=== PATIENT | female | born 2000 | race Hispanic/Latino ===

== ENCOUNTER 2020-01-21 18:06 | Emergency (ER) | payer SELFPAY ==
[2020-01-21 19:25] LABS: Urine Blood 2+ (NEG); Urine Glucose NEGATIVE (NEG); Urine Protein NEGATIVE (NEG); Urine Specific Gravity >1.030 (1.005-1.030)
[2020-01-21 19:36] LABS: Basophils % 0.7 % (0-1.3); Hematocrit 33.7 % (36.0-45.0); Lymphocytes % 23.9 % (15.3-44.8); MPV 7.5 fL (7.6-11.3); RBC Red Blood Cell Count 4.45 M/uL (3.86-4.86)
[2020-01-21 19:43] LABS: BUN Blood Urea Nitrogen 9 mg/dL (7-18); Bicarbonate 27 mmol/L (21-32); Glucose Level 87 mg/dL (74-106); Potassium 3.8 mmol/L (3.5-5.1); Sodium Level 140 mmol/L (136-145)
--- NOTE | 2020-01-21 22:18 | ER ---
Nurse's Notes [facility] Name: Bonita Falk Age: 19 yrs Sex: Female : 2000 Arrival Date: 01/21/2020 Time: 18:09 Bed 8 Private MD: Diagnosis: Abnormal uterine and vaginal bleeding, unspecified Presentation: 01/20 18:18 Chief complaint: Patient states: i have like a mucous plug type drainage around 1pm tw2 today, i called the ethylene oxide panelboard operator in [facility] and she told me to come request an us, and i am having pain, my periods are irregular i get them like 2 times a month, my lower back hurts, and i am having cramping, i am nauseous, i have taking tests and they have been negative but i have all the symptoms of being but i just really dont know. Coronavirus screen: Patient denies a cough. Patient denies shortness of breath or difficulty breathing. Patient denies measured and/or subjective temperature greater than 100.4F prior to today's visit. Patient denies travel on a cruise ship or to a country the [facility] currently lists as an affected area. Patient denies contact with known and/or suspected case of COVID-19. Ebola Screen: Patient denies travel to an Ebola-affected area in the 21 days before illness onset. Initial Sepsis Screen: Does the patient meet any 2 criteria? No. Patient's initial sepsis screen is negative. Does the patient have a suspected source of infection? No. Patient's initial sepsis screen is negative. Risk Assessment: Do you want to hurt yourself or someone else? Patient reports no desire to harm self or others. Onset of symptoms was January 21, 2020. 18:18 Method Of Arrival: Ambulatory tw2 18:18 Acuity: MARIBETH 3 tw2 Triage Assessment: 18:23 General: Appears uncomfortable, Behavior is calm, cooperative, appropriate for age. tw2 Pain: Complains of pain in back and abdomen. GI: Reports lower abdominal pain, nausea. : Reports vaginal bleeding that is bright red, moderate flow. Musculoskeletal: Range of motion: intact in all extremities. 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 - Social history:: Smoking status: Patient reports the use of cigarette tobacco products, "couple of cigarettes a day and i vape", Reported history of juuling and/or vaping. - Family history:: not pertinent. - Hospitalizations: : No recent hospitalization is reported. Screenin:25 Abuse screen: Denies threats or abuse. Denies injuries from another. Nutritional rv screening: No deficits noted. Tuberculosis screening: No symptoms or risk factors identified. Fall Risk None identified. Assessment: 19:25 General: Appears comfortable, Behavior is calm, cooperative. Pain: Complains of pain in rv suprapubic area. Neuro: Level of Consciousness is awake, alert, obeys commands, Oriented to person, place, time, situation. Cardiovascular: Patient's skin is warm and dry. Respiratory: Airway is patent. GI: Abdomen is round non-distended, Reports lower abdominal pain, cramping. Derm: Skin is intact. 21:06 Reassessment: Patient and/or family updated on plan of care and expected duration. Pain rv level reassessed. Patient is alert, oriented x 3, equal unlabored respirations, skin warm/dry/pink. pain is getting better, 6/10 pain scale. updated on the waiting time for ultrasound. Vital Signs: 18:18 BP 131 / 96; Pulse 93; Resp 17; Temp 97.9(TE); Pulse Ox 99% on R/A; Weight 93.89 kg tw2 (R); Height 5 ft. 3 in. (160.02 cm); Pain 7/10; 19:37 BP 142 / 85; Pulse 81; Resp 16; Pulse Ox 100% on R/A; rv 22:26 BP 138 / 86; Pulse 79; Resp 17; Temp 98; Pulse Ox 100% on R/A; rv 18:18 Body Mass Index 36.67 (93.89 kg, 160.02 cm) tw2 ED Course: 18:09 Patient arrived in ED. mr 18:22 Triage completed. tw2 18:23 Arm band placed on. tw2 19:01 Hank James MD is Attending Physician. rn 19:09 Jose, Jose, RN is Primary Nurse. rv 19:20 Inserted saline lock: 20 gauge in right antecubital area, using aseptic technique. rv Blood collected. 19:20 Initial lab(s) drawn, by me, sent to lab. rv 19:26 Patient has correct armband on for positive identification. Pulse ox on. NIBP on. rv 21:44 US Pelvis Complete In Process Unspecified. EDMS 22:26 No provider procedures requiring assistance completed. IV discontinued, intact, rv bleeding controlled, No redness/swelling at site. Pressure dressing applied. Administered Medications: No medications were administered Outcome: 22:18 Discharge ordered by . rn 22:26 Discharged to home ambulatory. rv 22:26 Condition: good 22:26 Discharge instructions given to patient, Instructed on discharge instructions, follow up and referral plans. Demonstrated understanding of instructions, follow-up care. 22:27 Patient left the ED. rv Signatures: Dispatcher [employer] EDRI Korin Knight, MD MD lynn Mckinney Tara, RN RN tw2 Jose Garcia, RN RN rv
--- NOTE | 2020-01-21 22:18 | EDPHYS ---
Physician Documentation [facility] Name: Bonita Falk Age: 19 yrs Sex: Female : 2000 Arrival Date: 01/21/2020 Time: 18:09 Bed 8 Private MD: ED Physician Hank James HPI: 01/20 19:26 This 19 yrs old Female presents to ER via Ambulatory with complaints of Back rn Pain, possible . 19:26 The patient presents with pain that is acute. The symptoms are located in the low back. rn Onset: The symptoms/episode began/occurred 1 month(s) ago. The pain does not radiate. The problem was sustained from unknown cause. Modifying factors: The patient symptoms are alleviated by nothing, the patient symptoms are aggravated by any movement. Severity of symptoms: At their worst the symptoms were mild, in the emergency department the symptoms are unchanged. The patient has not experienced similar symptoms in the past. Reports lower back pain, and intermittent vaginal bleeding, has taken multiple tests that have been negative but states her sisters only ever positive in blood tests. No concern for STI. . [employer]: 19:26 LMP N/A - Irregular menses rv Historical: - Allergies: 18:25 "unknown antibiotic"; tw2 - Home Meds: 18:25 None [Active]; tw2 - PMHx: 18:25 angioedema (2018), "hereditary"; tw2 - PSHx: 18:25 None; tw2 - Immunization history:: Adult Immunizations. - Social history:: Smoking status: Patient reports the use of cigarette tobacco products, "couple of cigarettes a day and i vape", Reported history of juuling and/or vaping. - Family history:: not pertinent. - Hospitalizations: : No recent hospitalization is reported. ROS: 19:26 Constitutional: Negative for fever, chills, and weight loss, Cardiovascular: Negative rn for chest pain, palpitations, and edema, Respiratory: Negative for shortness of breath, cough, wheezing, and pleuritic chest pain, Abdomen/GI: Negative for abdominal pain, nausea, vomiting, diarrhea, and constipation, Back: Negative for injury : Negative for injury, and swelling, MS/Extremity: Negative for injury and deformity, Skin: Negative for injury, rash, and discoloration, Neuro: Negative for headache, weakness, numbness, tingling, and seizure. Exam: 19:26 Constitutional: This is a well developed, well nourished patient who is awake, alert, rn and in no acute distress. Ambulatory to room without difficulty. Head/Face: Normocephalic, atraumatic. Cardiovascular: Regular rate and rhythm. No pulse deficits. Respiratory: No increased work of breathing, no retractions or nasal flaring. Abdomen/GI: soft, non-tender, no masses Back: No spinal tenderness. No costovertebral tenderness. Full range of motion. MS/ Extremity: Pulses equal, no cyanosis. Neuro: Awake and alert, GCS 15, oriented to person, place, time, and situation. Motor strength 5/5 in all extremities. Sensory grossly intact. Normal gait. Vital Signs: 18:18 BP 131 / 96; Pulse 93; Resp 17; Temp 97.9(TE); Pulse Ox 99% on R/A; Weight 93.89 kg tw2 (R); Height 5 ft. 3 in. (160.02 cm); Pain 7/10; 19:37 BP 142 / 85; Pulse 81; Resp 16; Pulse Ox 100% on R/A; rv 22:26 BP 138 / 86; Pulse 79; Resp 17; Temp 98; Pulse Ox 100% on R/A; rv 18:18 Body Mass Index 36.67 (93.89 kg, 160.02 cm) tw2 MDM: 19:01 Patient medically screened. rn 20:13 ED course: Labs unremarkable, reassured patient with neg UPT and serum preg test. Will rn obtain u/s to rule out pelvic pathology, already has outpt LEAD DENTAL ASSISTANT appt setup in < 2 weeks. Pt states not concerned of STI and only sexually active with one partner. . 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 Has been 1.5 hours rn waiting on u/s. . 21:48 ED course: Recommend outpt LEAD DENTAL ASSISTANT w/u including bloodwork, and PAP. . rn 22:17 Differential diagnosis: menorrhagia, ovarian torsion, ovarian cyst, fibroid, septate rn uterus, . Data reviewed: vital signs, nurses notes, lab test result(s), radiologic studies, ultrasound, and as a result, I will discharge patient. Counseling: I had a detailed discussion with the patient and/or guardian regarding: the historical points, exam findings, and any diagnostic results supporting the discharge/admit diagnosis, lab results, radiology results, the need for outpatient follow up, to return to the emergency department if symptoms worsen or persist or if there are any questions or concerns that arise at home. Special discussion: I discussed with the patient/guardian in detail that at this point there is no indication for admission to the hospital. It is understood, however, that if the symptoms persist or worsen the patient needs to return immediately for re-evaluation. 22:17 Special discussion: Based on the history and exam findings, there is no indication for rn further emergent testing or inpatient evaluation. I discussed with the patient/guardian the need to see the OB Gyne specialist for further evaluation of the symptoms. 01/20 18:43 Order name: Urine Dipstick--Ancillary (enter results); Complete Time: 19:50 bd 01/20 18:43 Order name: Urine --Ancillary (enter results); Complete Time: 19:50 bd 01/20 19:12 Order name: CBC with Diff; Complete Time: 19:50 rn 01/20 19:12 Order name: Basic Metabolic Panel; Complete Time: 19:50 rn 01/20 19:12 Order name: Test, Serum; Complete Time: 20:07 rn 01/20 19:12 Order name: IV Start; Complete Time: 19:24 rn 01/20 19:55 Order name: US Pelvis Complete rn Administered Medications: No medications were administered Disposition: 01/21/20 22:18 Discharged to Home. Impression: Abnormal uterine and vaginal bleeding, unspecified. - Condition is Stable. - Discharge Instructions: Abnormal Uterine Bleeding. - Medication Reconciliation Form, Thank You Letter, Antibiotic Education, Prescription Opioid Use form. - Follow up: Private Physician; When: As needed; Reason: Recheck today's complaints, Re-evaluation by your physician. - Problem is an ongoing problem. - Symptoms are unchanged. Signatures: Dispatcher [employer] [facility] Hank James MD MD rn Wise, Tara RN RN tw2 Jose Garcia RN RN rv Corrections: (The following items were deleted from the chart) 21:10 19:13 Pelvis Complete+[email or web address].[email or web address] ordered. [facility] 22:27 22:18 01/21/2020 22:18 Discharged to Home. Impression: Abnormal uterine and vaginal rv bleeding, unspecified. Condition is Stable. Discharge Instructions: Abnormal Uterine Bleeding. Forms are Medication Reconciliation Form, Thank You Letter, Antibiotic Education, Prescription Opioid Use. Follow up: Private Physician; When: As needed; Reason: Recheck today's complaints, Re-evaluation by your physician. Problem is an ongoing problem. Symptoms are unchanged. rn
[2020-01-21 22:42] VITALS: O2SAT 100
[2020-01-21 22:46] VITALS: BP 138/86; TEMP 98
--- NOTE | 2020-01-22 20:11 | RAD REPORT ---
EXAM DESCRIPTION: US - Pelvis Complete - 01/21/2020 9:44 pm CLINICAL HISTORY: Vaginal bleeding. Pelvic pain. Assess for ovarian torsion TECHNIQUE: Pelvic ultrasound, transpelvic and endovaginal COMPARISON: None. FINDINGS: Uterus: Orientation: Anteverted. Measurement: 7.0 x 3.2 x 4.3 cm for a volume of 51.4 mL. Myometrial echotexture: There is evidence of a uterine subseptus.. Endometrial cavity: Normal caliber measuring 0.8 cm in AP diameter. Right Ovary: Size: 2.3 x 1.7 x 1.7 cm for a volume of 3.5 mL. Blood flow: Normal. Appearance: Normal. Left Ovary: Size: 2.8 x 1.2 x 2.2 cm for a volume of 3.9 mL. Blood flow: Normal. Appearance: Normal. Pelvic Cul de Sac: No free fluid. IMPRESSION: 1. Evidence of a subseptus uterus. 2. No evidence of ovary torsion. Electronically signed by: Bright Britton MD 01/21/2020 10:06 PM CDT temporary technical issues with the PACS/Fluency reporting system, reports are being signed by the in house radiologist without review as a courtesy to ensure prompt reporting. The interpreting radiolog ist is fully responsible for the content of the report.
== END 2020-01-21 22:27 | disposition home or self-care (01) ==
LOC: ER 18:06
DX: N93.9 Abnormal uterine and vaginal bleeding, unspecified (principal); F17.210 Nicotine dependence, cigarettes, uncomplicated; F17.290 Nicotine dependence, other tobacco product, uncomplicated
CPT/HCPCS: 36415; 76856; 80048; 81003; 81025; 84703; 85025; 99284